=== PATIENT | female | born 1930 | race Caucasian/White ===

== ENCOUNTER 2017-02-17 10:05 | Emergency (ER) | payer OTHER, MEDICARE ==
[2017-02-17 10:16] VITALS: BP 144/79; PULSE 70; RESP 14; TEMP 98.4; O2SAT 93
--- NOTE | 2017-02-17 10:17 | UCPHY ---
H & P Time Seen by Provider: 02/17/17 10:16 Patient Type: Established HPI/ROS: Chief complaint: left michele laceration HPI: ED 6-year-old female in usual good health. She was attempting to get into a car and caught her left michele yesterday on the door itself. She sustained a ripping laceration present over the lateral aspect of the midportion of the left lower leg. She notes that she is not sure about her last tetanus shot Injury of the left leg, from door edge This happened at home , occurring yesterday Reports there is no numbness or loss of sensation. Contamination: None, except the as the door could be somewhat healthy FB possibility none Work: not applicable Avocation: not applicable ROS Neuro: No numbness or tingling or loss of sensation Smoking Status: Never smoked Physical Exam: Gen: Well-developed. Well-nourished. No odor of alcohol. Nontoxic. Afebrile. Extremity: There is a 9 cm, curved laceration that is split thickness to the left lower leg . Function: Without signs of tendon dysfnction NV Status: Intact CMS: Intact Constitutional: Initial Vital Signs Temperature (C) 36.9 C 02/17/17 10:15 Heart Rate 70 02/17/17 10:15 Respiratory Rate 14 02/17/17 10:15 Blood Pressure 144/79 H 02/17/17 10:15 O2 Sat (%) 93 02/17/17 10:15 O2 Delivery Mode Room Air Allergies/Adverse Reactions: amlodipine besylate [From Norvasc] Allergy (Verified 07/27/15 19:37) bupropion HCl [From Wellbutrin] Allergy (Verified 07/27/15 19:37) celecoxib [From Celebrex] Allergy (Verified 07/27/15 19:37) Home Medications: Medication Instructions Recorded Ambien 08/02/13 Lexapro 08/02/13 Losartan 08/02/13 Nifedipine 08/02/13 GABAPENTIN 06/06/14 Vicodin 5-300 mg Tablet 06/06/14 ZOLPIDEM TARTRATE 06/06/14 Medical Decision Making ED Course/Re-evaluation: This is a skin tear and will not require primary closure by stitches. The close nicely with Steri-Strips. However I am concerned as 24 hours old. I had the technical marketing engineer pulled back the flap, clean underneath, and we closed the wound with pressure as well as Steri-Strips. She tolerated procedure well. Differential Diagnosis: Diagnostic considerations include, but are not limited to, the following: Laceration, retained FB, fracture. - Data Points Medications Given: Discontinued Medications Tetanus/Diphtheria Toxoids Adsorbed (Tetanus-Diphtheria Tenivac) 0.5 ml IM .ONCE ONE Stop: 02/17/17 10:48 Last Admin: 02/17/17 10:58 Dose: 0.5 ml Tetracaine/Epinephrine/Lidocaine (Lets Soln Topical) 1 ea TP EDNOW ONE Stop: 02/17/17 10:49 Last Admin: 02/17/17 10:58 Dose: Not Given Departure - Departure Disposition: Home, Routine, Self-Care Clinical Impression: Skin tear Condition: Good Instructions: Skin Tear (ED) Additional Instructions: Keep area clean and dry Where bag your pants so they do not rub on the area Elevate her leg 3 times daily for an hour Remove Steri-Strips in 10 days time Watch for signs of infection Referrals: Naty Garcia MD [Primary Care Provider] - As per Instructions - PQRS PQRS Measurement: 134: Depression screening and followup, PRIME MD-PHQ2 (12 years and older) Over the last 2 weeks, how often have you been bothered by any of the following problems? 1. Feeling down, depressed, or hopeless? 2. Little interest or pleasure in doing things? Patient answered no to both 1 and 2 critically ill. 130: Documentation of medications. Reviewed all patient medications, doses, route and frequency. . 226: Do you smoke? No. 47: 65 and older: Advanced care planning. Patient designates surrogate decision maker as daphanie. 51: 18 years old and older with diagnosis of COPD, spirometry performance. Patient has no history of COPD 52: 18 years old and older with COPD and symptoms of COPD or FEV1<60% predicted prescribed a B Agonist. Patient has no history of COPD
[2017-02-17] MEDS ORDERED: TETANUS, DIPHTHERIA TOX (7YR+) 0.5 ML INJ IM ONE (10:47)
[2017-02-17] MEDS ORDERED: LETS SOLN TOPICAL 1 EA SYR TP ONE (10:48)
[2017-02-17] MEDS ORDERED: LIDOCAINE 2% JELLY 20 ML (UROJECT) ONE (10:53)
== END 2017-02-17 11:50 | disposition home or self-care (01) ==
LOC: CED 10:05
DX: S81.812A Laceration without foreign body, left lower leg, initial encounter (principal); W22.8XXA Striking against or struck by other objects, initial encounter
CPT/HCPCS: 90471; 90714; G0463; 99214-PO

== ENCOUNTER 2017-09-06 09:08 | Emergency (ER) | payer OTHER, MEDICARE ==
--- NOTE | 2017-09-06 09:23 | EDPHY ---
H & P Time Seen by Provider: 09/06/17 09:15 HPI/ROS: CHIEF COMPLAINT: Skin tear HISTORY OF PRESENT ILLNESS: The patient is a 86-year-old female who fell in her utility room. She states that she tripped over a box. She scraped her arm on the way down and hit her knee on the custom shoemaker. She has skin tears to her left lateral elbow and upper arm. She also has a deep laceration to her right michele. She denies any fractures. She has been ambulatory. She denies head neck or back pain. No weakness numbness or paralysis. REVIEW OF SYSTEMS: Constitutional: denies: chills, fever, recent illness, recent injury EENTM: denies: blurred vision, double vision, nose congestion Respiratory: denies: cough, shortness of breath Cardiac: denies: chest pain, irregular heart rate, lightheadedness, palpitations Gastrointestinal/Abdominal: denies: abdominal pain, diarrhea, nausea, vomiting, blood streaked stools Genitourinary: denies: dysuria, frequency, hematuria, pain Musculoskeletal: denies: joint pain, muscle pain Skin: See HPI Neurological: denies: headache, numbness, paresthesia, tingling, dizziness, weakness Hematologic/Lymphatic: denies: blood clots, easy bleeding, easy bruising Immunologic/allergic: denies: HIV/AIDS, transplant EXAM: GENERAL: Well-appearing, well-nourished and in no acute distress. HEAD: Atraumatic, normocephalic. EYES: Pupils equal round and reactive to light, extraocular movements intact, sclera anicteric, conjunctiva are normal. ENT: TMs normal, nares patent, oropharynx clear without exudates. Moist mucous membranes. NECK: Normal range of motion, supple without lymphadenopathy or JVD. LUNGS: Breath sounds clear to auscultation bilaterally and equal. No wheezes rales or rhonchi. HEART: Regular rate and rhythm without murmurs, rubs or gallops. ABDOMEN: Soft, nontender, normoactive bowel sounds. No guarding, no rebound. No masses appreciated. BACK: No CVA tenderness, no spinal tenderness, step-offs or deformities EXTREMITIES: See lacerations below, Normal range of motion, no pitting or edema. No clubbing or cyanosis. NEUROLOGICAL: Cranial nerves II through XII grossly intact. Normal speech, normal gait. 5/5 strength, normal movement in all extremities, normal sensation PSYCH: Normal mood, normal affect. SKIN: For skin tears to left lateral arm over elbow and upper arm. 4 cm v- shaped laceration to right michele approximately 2 cm deep. Neurovascular intact distally. Ambulatory. No visible fracture. No foreign body. 2 skin tears to left lower leg. Source: Patient Exam Limitations: No limitations - Personal History Current Tetanus/Diphtheria Vaccine: Yes Tetanus Vaccine Date: < 10 YEARS - Medical/Surgical History Hx Asthma: No Hx Chronic Respiratory Disease: No Hx Diabetes: No Hx Cardiac Disease: No Hx Renal Disease: No Hx Cirrhosis: No Hx Alcoholism: No Hx HIV/AIDS: No Hx Splenectomy or Spleen Trauma: No Other PMH: arthritis, HTN - Family History Significant Family History: No pertinent family hx - Social History Smoking Status: Never smoked Alcohol Use: Sober Drug Use: None Constitutional: Initial Vital Signs Temperature (C) 36.5 C 09/06/17 09:19 Heart Rate 70 09/06/17 09:19 Respiratory Rate 16 09/06/17 09:19 Blood Pressure 139/68 H 09/06/17 09:19 O2 Sat (%) 94 09/06/17 09:19 O2 Delivery Mode Room Air Allergies/Adverse Reactions: amlodipine besylate [From Norvasc] Allergy (Verified 07/27/15 19:37) bupropion HCl [From Wellbutrin] Allergy (Verified 07/27/15 19:37) celecoxib [From Celebrex] Allergy (Verified 07/27/15 19:37) Home Medications: Medication Instructions Recorded Ambien 08/02/13 Lexapro 08/02/13 Losartan 08/02/13 Nifedipine 08/02/13 GABAPENTIN 06/06/14 Vicodin 5-300 mg Tablet 06/06/14 ZOLPIDEM TARTRATE 06/06/14 Medical Decision Making Procedures: Procedure: Laceration repair. Verbal consent was obtained from the patient. The 4 cm right lower leg laceration was anesthetized with 0.5% bupivacaine locally infiltrated. The wound was irrigated copiously according to protocol, draped and explored to its base. It was approximately 2 cm deep. There were no deep structures involved. No tendon, nerve, or vascular injury was identified when explored through full range of motion. No foreign body was identified. The wound was repaired with 2 deep sutures 2.0 Vicryl, 6 horizontal mattress sutures, 5.0 Prolene, interrupted. The wound repair was complex with flap realignment and multilayered closure. The procedure was performed by myself. A dressing was then placed with sterile gauze and bacitracin. Is was also reinforced Steri- Strips ED Course/Re-evaluation: The patient tolerated laceration repair. The rest of her skin tears were closed with Steri-Strips after cleaning. Patient tolerated this well. She declines x-rays. She is eager to go home. Differential Diagnosis: Partial list of the Differential diagnosis considered include but were not limited to; laceration, skin tear and although unlikely based on the history and physical exam, I also considered fracture, head injury, neck injury. I discussed these differential diagnoses and the plan with the patient as well as the usual and expected course. The patient understands that the diagnosis is provisional and that in medicine we are not always correct and that further workup is often warranted. Usual and customary warnings were given. All of the patient's questions were answered. The patient was instructed to return to the emergency department should the symptoms at all worsen or return, otherwise to followup with the physician as we discussed. Departure - Departure Disposition: Home, Routine, Self-Care Clinical Impression: Laceration, Skin tear Condition: Fair Instructions: Care For Your Stitches (ED), Laceration (ED), Skin Tear (ED) Additional Instructions: PLEASE RETURN IN 10 DAYS TO HAVE YOUR SUTURES REMOVED. CLEAN YOUR WOUNDS DAILY WITH WARM, SOAPY WATER BEING CAREFUL NOT TO DISTURB THE STERI STRIPS. REAPPLY A BANDAGE TO YOUR WOUNDS AFTER CLEANING. THE NON-STICK MESH WE GAVE YOU TODAY CAN BE RE-APPLIED FOR THE NEXT 5-7 DAYS NEEDED. THEN THEY SHOULD BE THROWN OUT. THE STERI STRIPS WILL FALL OFF ON THEIR OWN IN 7-10 DAYS. DO NOT REMOVE THEM BEFORE THEN, THIS CAN CAUSE THE WOUNDS TO REOPEN. FOLLOWUP FOR ANY WORSENING OR CONCERNS, INCLUDING BUT NOT LIMITED TO: INCREASED PAIN, REDNESS, SWELLING, PURULENT DISCHARGE, FEVERS, OR STREAKING ON YOUR ARM. Referrals: Naty Garcia MD [Primary Care Provider] - As per Instructions
[2017-09-06 09:26] VITALS: BP 139/68; PULSE 70; RESP 16; TEMP 97.7; O2SAT 94
== END 2017-09-06 10:59 | disposition home or self-care (01) ==
LOC: CED 09:08
PROC: 0HQLXZZ Repair Left Lower Leg Skin, External Approach (ICD-10-PCS; principal; 2017-09-06)
DX: S81.812A Laceration without foreign body, left lower leg, initial encounter (principal); I10 Essential (primary) hypertension; W01.198A Fall on same level from slipping, tripping and stumbling with subsequent striking against other object, initial encounter

== ENCOUNTER → 2017-11-25 | Outpatient (CLI) | payer OTHER, MEDICARE | LOC: BHFA 08:30 | PROVIDERS: ATTEND Internal Medicine Interventional Cardiology | DX: R07.9 Chest pain, unspecified (principal); R94.31 Abnormal electrocardiogram [ECG] [EKG]; I25.10 Atherosclerotic heart disease of native coronary artery without angina pectoris; I10 Essential (primary) hypertension | CPT/HCPCS: 78452; 93017; A9500; J2785 ==

== ENCOUNTER → 2018-03-17 | Outpatient (CLI) | payer OTHER, MEDICARE | LOC: CIMAGING 09:06 | PROVIDERS: ATTEND Internal Medicine | DX: R10.9 Unspecified abdominal pain (principal); R14.0 Abdominal distension (gaseous); R53.83 Other fatigue; Z79.899 Other long term (current) drug therapy; R93.3 Abnormal findings on diagnostic imaging of other parts of digestive tract | CPT/HCPCS: 74022-PO ==

== ENCOUNTER → 2018-03-23 | Outpatient (CLI) | payer OTHER, MEDICARE ==
[~2018-03-23] MED LIST: IOPAMIDOL (ISOVUE 370) 100 ML BTL IV ONE
== END ==
LOC: FIMAGING 08:24
PROVIDERS: ATTEND Internal Medicine
DX: K59.00 Constipation, unspecified (principal); K57.30 Diverticulosis of large intestine without perforation or abscess without bleeding; I10 Essential (primary) hypertension; I25.10 Atherosclerotic heart disease of native coronary artery without angina pectoris
CPT/HCPCS: 74175; Q9967

== ENCOUNTER 2018-03-27 09:54 | Emergency (ER) | payer OTHER, MEDICARE ==
--- NOTE | 2018-03-27 10:09 | EDPHY ---
H & P Time Seen by Provider: 03/27/18 10:00 HPI/ROS: 87-year-old female presents complaining of left forearm laceration after bumping into a door knob early this morning. She denies difficulty moving her arm, she denies pain. She also states that she had a fall several days ago and her right leg feels tight. No difficulty walking or bending her knee. No leg swelling, no chest pain, no sob Review of systems As per HPI General no fever no chills no weakness HEENT no eye pain no eye discharge. No eye redness, no sore throat Respiratory no cough, no shortness of breath Cardiac no chest pain, no peripheral edema GI no abdominal pain, no diarrhea, no constipation, no nausea, no vomiting no flank pain, no hematuria, no dysuria Musculoskeletal no myalgias, no joint pain Heme pos easy bruising, no easy bleeding Endo no polyuria, no polydipsia Skin no rashes, no pruritus Neuro no syncope, no dizziness, no headaches Psych is no suicidal ideation, no homicidal ideation Past Medical/Surgical History: hypertension Social History: no alcohol or drug use Smoking Status: Never smoked Physical Exam: thin elderly F in nad, non toxic appearance afebrile vss at,nc neck supple, no jvd lungs cta bilat heart rrr abd non dist nab soft nt pelvis non tender right lower ext- no calf swelling,no calf tenderness, from at knee, no erythema , no increased warmth distal pulses intact Left forearm with superficial skin avulsion lateral left forearm approximately 6 x 3 cm, no swelling, no lymphangitic streaks, full range of motion at elbow, good distal pulses Constitutional: Initial Vital Signs Temperature (C) 36.9 C 03/27/18 10:02 Heart Rate 75 03/27/18 10:02 Respiratory Rate 20 03/27/18 10:02 Blood Pressure 132/61 H 03/27/18 10:02 O2 Sat (%) 92 03/27/18 10:02 O2 Delivery Mode Room Air Allergies/Adverse Reactions: amlodipine besylate [From Norvasc] Allergy (Verified 03/27/18 10:08) bupropion HCl [From Wellbutrin] Allergy (Verified 03/27/18 10:08) celecoxib [From Celebrex] Allergy (Verified 03/27/18 10:08) Sulfa (Sulfonamide Antibiotics) Allergy (Verified 03/27/18 10:08) Home Medications: Medication Instructions Recorded Ambien 08/02/13 Lexapro 08/02/13 Losartan 08/02/13 Nifedipine 08/02/13 GABAPENTIN 06/06/14 Vicodin 5-300 mg Tablet 06/06/14 Pravastatin Sodium 03/27/18 Medical Decision Making ED Course/Re-evaluation: Patient seen and evaluated for left forearm injury, and right leg"tightness". Impression Left forearm skin avulsion Right leg strain Plan Skin avulsion debrided, cleansed, wound care provided Patient advised to change bandage daily and to recheck with her primary care physician in 2-3 days Right leg-recommend ice to area tenderness and gentle stretches. Differential Diagnosis: Differential diagnosis considered but not limited to Left forearm abrasion, laceration, skin avulsion, left elbow fracture Right leg contusion, abrasion, sprain, strain, DVT Departure - Departure Disposition: Home, Routine, Self-Care Clinical Impression: Avulsion of skin of left forearm, Strain of knee and leg, right Condition: Good Instructions: Muscle Strain (ED), Skin Avulsion (ED) Additional Instructions: Keep area clean and dry. Change bandage once a day. Follow up with your primary care physician this week to recheck and make sure it is not infected and is healing well. Referrals: NONE *PRIMARY CARE P,. [Primary Care Provider] - As per Instructions
[2018-03-27 11:24] VITALS: BP 130/63
== END 2018-03-27 11:01 | disposition home or self-care (01) ==
LOC: CED 09:54
DX: S51.802A Unspecified open wound of left forearm, initial encounter (principal); S86.911A Strain of unspecified muscle(s) and tendon(s) at lower leg level, right leg, initial encounter; I10 Essential (primary) hypertension; W18.09XA Striking against other object with subsequent fall, initial encounter

== ENCOUNTER → 2018-07-20 | Outpatient (CLI) | payer OTHER, MEDICARE | LOC: FIMAGING 10:26 | PROVIDERS: ATTEND Internal Medicine | DX: G31.9 Degenerative disease of nervous system, unspecified (principal); I67.2 Cerebral atherosclerosis; J32.0 Chronic maxillary sinusitis ==

== ENCOUNTER → 2018-09-07 | Outpatient (CLI) | payer OTHER, MEDICARE | LOC: BHFA 09:00 | PROVIDERS: ATTEND Internal Medicine Cardiovascular Disease | DX: I25.10 Atherosclerotic heart disease of native coronary artery without angina pectoris (principal); I10 Essential (primary) hypertension; E78.2 Mixed hyperlipidemia ==

== ENCOUNTER → 2018-09-20 | Outpatient (CLI) | payer OTHER, MEDICARE | LOC: FIMAGING 14:50 | PROVIDERS: ATTEND Physician Assistant | DX: I82.4Z2 Acute embolism and thrombosis of unspecified deep veins of left distal lower extremity (principal) ==

== ENCOUNTER → 2018-09-27 | Outpatient (CLI) | payer OTHER, MEDICARE | LOC: BHLMT 10:45 | PROVIDERS: ATTEND Internal Medicine Cardiovascular Disease | DX: I25.10 Atherosclerotic heart disease of native coronary artery without angina pectoris (principal); I67.82 Cerebral ischemia ==

== ENCOUNTER 2018-10-02 18:48 | Inpatient (IN) | payer OTHER, MEDICARE ==
--- NOTE | 2018-10-02 19:37 | EDPHY ---
H & P Smoking Status: Never smoked Time Seen by Provider: 10/02/18 19:19 HPI/ROS: CHIEF COMPLAINT: Right arm and leg weakness and sensory changes HISTORY OF PRESENT ILLNESS: Patient is a 87-year-old female here complaining of approximately 4 months of intermittent sensation of warmth in the the right arm and right leg. She says this is non positional and comes and goes has become more frequent over the last couple of weeks. She did have negative dry head CT scan done her primary care physician back in June. Over the last couple weeks she has also noticed that the warm sensation is also has been associated with sensation of weakness. She denies any trouble speaking or facial droop or recent head injury. She is not taking any blood thinners. She she has no history of stroke. This evening when she was speaking with her daughter on the phone she had a very strong sensation of the warmth in her right arm and right leg and associated weakness. Decision was strong enough to were made speaking difficult. She denies actual difficulty speaking more that she was overwhelmed with the sensation in her extremities. REVIEW OF SYSTEMS: Constitutional: No fever, no chills. Eyes: No discharge. ENT: No sore throat. Cardiovascular: No chest pain, no palpitations. Respiratory: No cough, no shortness of breath. Gastrointestinal: No abdominal pain, no vomiting. Genitourinary: No hematuria. Musculoskeletal: No back pain. Skin: No rashes. Neurological: No headache. (Arnoldo Samuels) Physical Exam: General Appearance: Alert and no distress. ENT: normal dentition. No tonsillar exudate or swelling. Eyes: Pupils equal and round no injection. Respiratory: Chest is nontender, lungs are clear to auscultation. Cardiac: regular rate and rhythm. No lower extremity edema Gastrointestinal: Abdomen is soft and nontender, no masses, bowel sounds normal. Musculoskeletal: Neck is supple and nontender. Extremities have full range of motion and are nontender without deformity Skin: No rashes or lesions. Neuro: Cranial nerves grossly intact. No nystagmus. Normal [id number] testing. No ulnar drift. Equal grasp bilateral hands. Ambulatory. (Arnoldo Samuels) Constitutional: Initial Vital Signs Temperature (C) 36.8 C 10/02/18 18:51 Heart Rate 72 10/02/18 18:51 Respiratory Rate 18 10/02/18 18:51 Blood Pressure 160/75 H 10/02/18 18:51 O2 Sat (%) 92 10/02/18 18:51 O2 Delivery Mode Nasal Cannula O2 (L/minute) 2 Allergies/Adverse Reactions: bupropion HCl [From Wellbutrin] Allergy (Unknown, Unverified 10/03/18 11:06) amlodipine besylate [From Norvasc] Allergy (Verified 03/27/18 10:08) aspirin Allergy (Verified 10/03/18 03:41) celecoxib [From Celebrex] Allergy (Verified 03/27/18 10:08) NSAIDS (Non-Steroidal Anti-Inflamma Allergy (Verified 10/03/18 03:42) Sulfa (Sulfonamide Antibiotics) Allergy (Verified 03/27/18 10:08) Home Medications: Medication Instructions Recorded Escitalopram Oxalate [Lexapro] 15 mg PO DAILY 08/02/13 Losartan Potassium 100 mg PO DAILY 08/02/13 NIFEdipine ER [Adalat CC 30 mg (*)] 30 mg PO DAILY 08/02/13 Zolpidem Tartrate [Ambien 5MG (*)] 5 mg PO BID@03,21 08/02/13 Gabapentin [Neurontin 400 MG (*)] 400 mg PO QID 06/06/14 Hydrocodone/Acetaminophen [[place]ossom 1 - 2 tab PO Q4-6PRN PRN 06/06/14 5/325 (*)] Pravastatin Sodium 20 mg PO DAILY 03/27/18 Albuterol [Proventil 2 mg (*)] 2 mg PO TID 10/03/18 Mirtazapine [Remeron] 15 mg PO HS 10/03/18 traZODone [traZODONE 50MG (*)] 50 - 100 mg PO HS PRN 10/03/18 Medical Decision Making ED Course/Re-evaluation: 87-year-old female the here with intermittent sensory changes in the right upper extremity and right lower extremity and also weakness. MR brain without contrast reveals the the left-sided mass/tumor verses subacute infarct. 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 She will be admitted for further evaluation including MRI with contrast. Patient has no focal deficits on exam and I have re-evaluated her at least 5 times and she has never developed any neurologic deficits on her exam. Patient agrees with admission and plan. (Arnoldo Samuels) Differential Diagnosis: Seizure, CVA, ACS, arrhythmia, brain bleed, brain mass (Arnoldo Samuels) - Data Points Laboratory Results: Laboratory Results 10/03/18 09:11 10/03/18 04:47 Medications Given: Hydrocodone Bitart/Acetaminophen ([place] 5/325) 1 - 2 tab PO Q4H PRN PRN Reason: Pain, Breakthrough Stop: 10/13/18 10:59 Last Admin: 10/03/18 16:12 Dose: 1 tab Albuterol (Proventil Tablet) 2 mg PO TID JOSE Stop: 04/01/19 15:59 Last Admin: 10/04/18 02:55 Dose: Not Given Alprazolam (Xanax) 0.125 mg PO BID PRN PRN Reason: Anxiety Stop: 04/01/19 20:59 Last Admin: 10/03/18 15:00 Dose: 0.125 mg Escitalopram Oxalate (Lexapro) 15 mg PO DAILY JOSE Stop: 04/01/19 10:59 Last Admin: 10/03/18 11:28 Dose: 15 mg Gabapentin (Neurontin) 600 mg PO TID JOSE Stop: 04/01/19 11:43 Last Admin: 10/03/18 22:11 Dose: 600 mg Sodium Chloride (Ns) 1,000 mls @ 75 mls/hr IV CONT JOSE Stop: 03/31/19 23:44 Last Admin: 10/03/18 02:31 Dose: 1,000 mls Losartan Potassium (Cozaar) 100 mg PO DAILY JOSE Stop: 04/01/19 11:44 Last Admin: 10/03/18 12:06 Dose: 100 mg Mirtazapine (Remeron) 15 mg PO HS JOSE Stop: 04/01/19 20:59 Last Admin: 10/03/18 22:11 Dose: 15 mg Nifedipine (Adalat Cc) 30 mg PO DAILY JOSE Stop: 04/01/19 10:59 Last Admin: 10/03/18 11:24 Dose: 30 mg Zolpidem Tartrate (Ambien) 5 mg PO HS PRN PRN Reason: Sleep/Insomnia Stop: 04/01/19 01:25 Last Admin: 10/03/18 22:11 Dose: 5 mg Discontinued Medications Gabapentin (Neurontin) 400 mg PO TID JOSE Stop: 04/01/19 11:43 Last Admin: 10/03/18 16:12 Dose: 400 mg Point of Care Test Results: Chemistry 10/02/18 19:40 POC Troponin I 0.01 ng/mL ng/mL (0.00-0.08) Departure - Departure Disposition: [facility] Clinical Impression: Brain mass Condition: Good
--- NOTE | 2018-10-02 19:52 | CPEKG ---
Test Reason : OPEN Blood Pressure : / mmHG Vent. Rate : 063 BPM Atrial Rate : 063 BPM P-R Int : 170 ms QRS Dur : 107 ms QT Int : 423 ms P-R-T Axes : 038 019 113 degrees QTc Int : 434 ms Sinus rhythm Left ventricular hypertrophy Inferior infarct, old Lateral leads are also involved Confirmed by Manny Verduzco ([id number] on 10/02/2018 7:51:59 PM Referred By: Confirmed By:Manny Verduzco
[2018-10-02 21:03] LABS: PLATELET COUNT 187 10^3/uL (150-400)
[2018-10-02] MEDS ORDERED: NS 1,000 ML IV SCH (23:45)
[2018-10-02] MEDS ORDERED: ONDANSETRON DISINTEGRATING 4 MG TAB PO PRN (23:56)
[2018-10-02] MEDS ORDERED: ACETAMINOPHEN 325 MG TAB PO PRN (23:56)
[2018-10-02] MEDS ORDERED: ONDANSETRON 4 MG/2 ML VIAL IVP PRN (23:56)
[2018-10-03] MEDS: ZOLPIDEM TARTRATE 5 MG TAB PO PRN ×2 (01:45→22:11)
[2018-10-03] MEDS ORDERED: hydrALAZINE 10 MG TAB PO PRN (02:16)
--- NOTE | 2018-10-03 04:05 | GHP ---
DATE OF ADMISSION: 10/02/2018 SOURCE: Patient provides history, appears reliable. EMR was reviewed and case discussed with ED pro vider. CHIEF COMPLAINT: Right arm and leg warmth and weakness. HISTORY OF PRESENT ILLNESS: A very pleasant 87-year-old female, who has a history of HTN, HLD, OA, a nxiety, and chronic pain, who presents to the emergency department today with complaints of increasin g frequency of right arm and leg pain, warmth. Patient has been experiencing intermittent episodes 1 or more times weekly since June. In the past week, however, patient has noted that her symptoms h ave been increasing in frequency. She feels like it is an increase in warmth. She denies any numbne ss, tingling. She did not have any focal weakness until today. She also became so overwhelmed with the severity of her symptoms that she felt like she was having a hard time getting her words out. Sh e denies any difficulties with the words, but she just felt so overwhelmed, she had trouble talking. The patient denies any dizziness or vertigo, but she felt like the best thing for her to do would be to stand still, and she was comfortable waiting for her symptoms to resolve. She denies any headach e. No blurry vision. No numbness or tingling. Patient denies any causative sources for her symptom s. They can occur at any time. She denies any associated headache. No blurry or visual changes. N o nausea, vomiting. Patient reports she has chronic shortness of breath at baseline, followed by Dr. Sal Ballesteros but has not had any acute changes in any of her symptoms. SYSTEMS REVIEW: 10 systems reviewed. Negative, except as noted above in HPI. ALLERGIES: Amlodipine, bupropion, all NSAIDs, sulfa. HOME MEDICATIONS: As available per EMR, still missing dosing. Vicodin 5/300 p.r.n., pravastatin, ni fedipine, losartan, Lexapro, gabapentin, and Ambien. PAST MEDICAL HISTORY: Significant for HTN, HLD, OA, anxiety, pain. PAST SURGICAL HISTORY: Patient with a left knee arthroscopy. She had a laminectomy in the lumbar sp ine, L4-5 at age 34. She had a bilateral cataract extraction and lens replacement. She also has had a right retinal clot thrombosed. She has had appendectomy. FAMILY HISTORY: Patient's mother age 83 [address] No cancers in the family. Patient has 1 br other who had a brain tumor that was benign but impacted his frontal lobe. She has 8 brothers and 3 sisters. Multiple are . Multiple brothers with history of CAD and CT. Youngest age 59, dec eased. Sister: HTN. No family history of CVA. SOCIAL HISTORY: Patient lives alone. She does not smoke, drink, or do drugs. She has a daughter wh o lives locally in town. CODE STATUS: Full. PHYSICAL EXAM: VITAL SIGNS UPON ARRIVAL TO THE EMERGENCY DEPARTMENT: Blood pressure 160/75, heart r ate 72, respiratory rate 18, O2 sat 92% on room air with temperature 36.8. VITALS CURRENTLY AVAILABL E: Blood pressure 186/64, heart rate 64, respiratory rate 19, O2 sat is 94% on room air with tempera ture 36.6. GENERAL: No acute distress. Very pleasant, elderly lady who is resting quietly in bed. She does appear slightly younger than stated age. HEAD: Normocephalic, atraumatic. EYES: Extraoc ular muscles are intact. Pupils equal, round, reactive to light bilaterally and symmetric. Lens ref charmaine is appreciated bilaterally. ENT: Mucous membranes are moist. Dentition in fair condition. NEC K: Supple. Trachea midline. CV: Regular rate and rhythm. No murmurs, rubs, or gallops appreciate d. RESPIRATORY: Lungs are clear to auscultation bilaterally. No wheezes, rales, or rhonchi appreci ated. ABDOMEN: Positive bowel sounds. Soft, nontender to palpation. No rebound, guarding, or mass es. : No suprapubic tenderness to palpation. No Luevano catheter in place. MUSCULOSKELETAL: Meseret ent with generalized deconditioning, but she otherwise is able to sit up independently. She moves al l extremities. Musculoskeletal exam grossly normal. NEURO: Grossly nonfocal. Patient moves all ex tremities. She has 5/5 upper and lower extremity strength. Route Sales Associate are equal and intact and within no rmal limits. Patient is able to move all extremities without any evidence of deficit. No facial lizet oping. Cranial nerves 2 through 12 are intact and symmetric bilaterally. PSYCH: The patient is a l ittle bit anxious, but she is otherwise pleasant and cooperative. Thought process, content, and ques tions are all appropriate. LABORATORY STUDIES: 1. WBC is 9.29, H and H 12.8 and 39.3, MCV of 92.3, platelet count is 187, no bands. 2. Sodium is 139, potassium 4.2, chloride 107, CO2 24, anion gap of 8, BUN 18, creatinine 0.7, GFR g reater than 60, glucose 87, calcium 10.1. Troponin is negative, 1.01. EKG: Normal sinus rhythm in the 60s. LVH. Patient with Q-waves in the inferior leads, lateral lead s, with some nonspecific T-wave flattening in the anterolateral leads. No acute changes. QTc is 434 . IMAGING: MRI without image report reviewed. Diffuse thickening in the left insular cortex with foca l masslike diffusion restriction posteriorly. 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 Postcontrast imaging recommended for further characterization. Underlying white matter micr ovascular ischemic gliosis is noted. ASSESSMENT AND PLAN: This is a very pleasant 87-year-old female who presents to the emergency [facility] system with complaints of [id number] right arm warmth and rapidly resolving right-sided weakness in upper and lower extremity. 1. Right-sided weakness, currently resolved. Patient with intermittent warmth of these extremities. MRI is concerning for a primary brain lesion. [facility]. Neurosurgery consult in the morning as per day team. Currently, patient i s stable. Monitor neurologic checks with vital sign checks. Left insular cortex mass as noted above . CHRONIC MEDICAL ISSUES: 1. Benign essential hypertension. Patient has had rising blood pressures. She does appear a little bit anxious. Will try to have her rest for some time and then recheck her blood pressure. She is o therwise asymptomatic from this. Hydralazine will be available p.r.n. Patient's med list is incompl ete as patient does not recall the dosing. Will hold off on restarting home medicines until these ar e clarified. Patient does report that she took her home medications prior to leaving for the [facility]. 2. Hyperlipidemia. Continue statin. 3. Osteoarthritis. Supportive care. 4. Anxiety. Ativan will be made available p.r.n. Patient is complaining of insomnia currently, and so will resume her home Ambien at low dose. 5. Fluid, electrolyte, nutrition: Some IV fluids overnight for gentle hydration. Electrolyte monit oring. Replace if needed. 6. COR status is full. DISPOSITION: Patient admitted to observation status at this time pending repeat MRI and Neurosurgery evaluation. /[id number]/MODL
--- NOTE | 2018-10-03 08:44 | NEUSURGPN ---
Assessment/Plan: Assessment: 87 yr old F with 4 month history of right sided "warmth", mass seen on brain MRI. Neuro intact Please see full dictated consult when available Plan: -MRI with contrast ordered -May consider CAP CT following MRI with -Dr Izaguirre will see patient this morning -Please call neurosurgery with questions/concerns Subjective: Laying in bed, denies any complaints Objective: AxO x3 PERRLA, EOMI CN 2-12 grossly intact MAEx4 5/5 BUE,BLE sensation intact to light touch BLE Mild pronator drift Neuro Check Frequency: per routine Urinary Catheter in Place: No - Physician Discussed Patient with : Dmitriy Neurosurgery Physical Exam - Vitals, I&O, Labs I and O 10/02/18 10/03/18 10/04/18 05:59 05:59 05:59 Intake Total 300 Balance 300 Weight 55.33 kg 55.3 kg Intake: IV Infused (ml) 300 Ns 1,000 ml @ 75 mls/hr 300 IV CONT JOSE Rx#: [id number] Vital Signs Temp Pulse Resp BP Pulse Ox 36.5 C 50 L 16 178/78 H 98 10/03/18 04:45 10/03/18 04:45 10/03/18 04:45 10/03/18 07:30 10/03/18 04:45 Laboratory Results 10/03/18 04:47 10/03/18 04:47 ICD10 Worksheet Patient Problems: Problems Problem Status Onset Brain mass Acute - ICD10 Problem Qualifiers (1) Brain mass
[2018-10-03] MEDS ORDERED: GADOBUTROL 10 ML VIAL IVP ONE (09:37)
[2018-10-03] MEDS ORDERED: traZODone 50 MG TAB PO PRN (11:00)
[2018-10-03] MEDS: NIFEdipine ER 30 MG TAB PO SCH (11:24)
[2018-10-03] MEDS: ESCITALOPRAM OXALATE 10 MG TAB PO SCH (11:28)
[2018-10-03] MEDS: HYDROCODONE/APAP 5/325 TAB PO PRN ×2 (11:28→16:12)
[2018-10-03] MEDS ORDERED: GABAPENTIN 400 MG CAP PO SCH ×2 (11:44→16:00)
--- NOTE | 2018-10-03 11:51 | HOSPPROG ---
Hospitalist Progress Note Assessment/Plan: Janina Senior is a 87 y/o who presented to the ER with right sided weakness in both upper and lower extremities that resolved. Today is my first encounter, chart reviewed. Appreciate neurosurgery seeing. *right sided weakness w resolution -MRI without contrast shows diffuse thickening in the left insular cortex with focal masslike diffusion restriction posteriorly. 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 -repeat MRI w contrast shows subacute vs low grade glioma -appreciate Dr Izaguirre seeing her, asked Dr Knight to see -patient's daughter said his symptoms have been progressing for several weeks, also have some memory issues, difficulty w finding words at times *htn -resumed losartan *HLD -statin -check lipid panel *osteoarthritis -resumed home pain med *anxiety -she says this is from the loss of her son -ordered very low dose of Xanax *Plan: Dr Knight to see, further input from Neurosurgery. The patient will require another midnight stay for evaluation and further discussion of treatment options. Subjective: Ivette has no complaints. Is anxious about her diagnosis. Objective: Vital Signs Temp Pulse Resp BP Pulse Ox 36.5 C 71 25 H 172/80 H 93 10/03/18 04:45 10/03/18 08:00 10/03/18 08:00 10/03/18 11:24 10/03/18 08:00 Laboratory Results 10/03/18 09:11 10/03/18 04:47 10/02/18 10/03/18 10/04/18 05:59 05:59 05:59 Intake Total 300 Balance 300 - Physical Exam Constitutional: no apparent distress, appears nourished, uncomfortable Eyes: EOMI Ears, Nose, Mouth, Throat: hearing normal Cardiovascular: regular rate and rhythym Respiratory: no respiratory distress Gastrointestinal: normoactive bowel sounds Skin: warm Neurologic: AAOx3, CN II-XII Intact, No facial droop Psychiatric: interacting appropriately ICD10 Worksheet Patient Problems: Problems Problem Status Onset Brain mass Acute
[2018-10-03] MEDS: LOSARTAN POTASSIUM 50 MG TAB PO SCH (12:06)
[2018-10-03] MEDS: ALPRAZolam 0.25 MG TAB PO PRN (15:00)
--- NOTE | 2018-10-03 15:54 | GCON ---
CHIEF COMPLAINT: Right-sided body dysesthesias, brain mass. HISTORY OF PRESENT ILLNESS: The patient is an 87-year-old female who began noticing right sided body dysesthesias, which she describes as warmth coming over her body on the right side. These symptoms have been going on for approximately 4 months and tend to only last a few seconds at a time. More recently in the last month, these dysesthesias have become more frequent and more severe in intensity and lasting for longer periods of time. She denies any weakness in any of her extremities during these episodes. She presented to the emergency department, underwent a MRI of the brain, which shows a left- sided cranial mass. She denies any dizziness or vertigo. Denies any vision issues or difficulties with her words. REVIEW OF SYSTEMS: A 10-point review of systems was performed and negative aside from what was mentioned in HPI. ALLERGIES: Amlodipine, bupropion , NSAIDs, sulfa, and adhesive. HOME MEDICATIONS: 1. Ambien. 2. Lexapro. 3. Losartan. 4. Nifedipine. 5. Gabapentin. 6. Vicodin 5/300. 7. Pravastatin sodium. PAST MEDICAL HISTORY: 1. Hypertension. 2. Hyperlipidemia. 3. Osteoarthritis. 4. Obstructive apnea. 5. Anxiety. 6. Pain. PAST SURGICAL HISTORY: 1. Left knee arthroscopy. 2. Laminectomy L4-5 at age 34. 3. Bilateral cataracts and lens replacement. 4. Right retinal clot thrombosis. 5. Appendectomy. FAMILY HISTORY: Patient's mother at the age of 83 of an [place]. Denies any cancers in her family. The patient has 1 brother who had a brain tumor that was benign, but impacted his frontal lobe. SOCIAL HISTORY: Patient denies any alcohol use. She has never smoked any nicotine products, and she denies any illicit drug use. She lives alone and she has 1 daughter who lives close by. DIAGNOSTICS: White blood cell count 5.74, hemoglobin 13.7, hematocrit 41.2, platelets 187. Sodium 138, potassium 4.3, BUN 13, creatinine 0.7, glucose is 76. DIAGNOSTIC IMAGING: MRI of the brain performed without contrast on October 02, 2018, at 1952 demonstrates: 1. Diffuse thickening of the left insular cortex with focal mass-like diffusion restriction posteriorly, primary brain tumor, glioma versus subacute ischemic infarction. 2. Underlying white-matter microvascular ischemic gliosis. PHYSICAL EXAMINATION: VITAL SIGNS: Blood pressure 144/93, heart rate 98, respiratory rate 16, oxygen saturation is 92% on room air, temperature is 37.9 degrees Celsius. HEENT: Head is normocephalic and atraumatic. Pupils equal, round, and reactive to light. EOMI. Full visual pittman by confrontation. RESPIRATORY/ CARDIAC: Deferred. ABDOMEN: Deferred. GENITOURINARY: Deferred. RECTAL: Deferred. NEUROLOGIC: The patient is awake and alert, oriented to name, place , location, date, time, and situation. Memory is intact to immediate past and current events. Speech: No aphasia or dysphonia. Cranial nerves 2-12 are grossly intact. Motor: Patient has 5/5 strength in all muscle groups in bilateral upper and lower extremities to include deltoids, biceps, triceps, brachioradialis, wrist flexion, extensors, child care worker, intrinsic fingers, iliopsoas, quadriceps, hamstrings, plantar flexion, dorsiflexion, EHL testing. Sensation is grossly intact to light touch throughout all dermatomal distributions of bilateral lower extremities. Reflexes biceps, triceps, brachioradialis, knee jerk, and ankle jerk are 2+/4. Toes are downgoing bilaterally. Aguirre sign is negative. Babinski is negative. No evidence of clonus. Patient does have a mild positive pronator drift. ASSESSMENT/PLAN: Patient is an 87-year-old female who presented to the emergency department with progressive right side dysesthesias, which have progressively been getting worse in the last 4 months. Patient underwent an MRI of the brain without contrast last evening, which demonstrated diffuse thickening of the left insular cortex with a focal mass-like diffusion. We will order an MRI with contrast this morning for further evaluation of this mass. We will present the patient at our Hospital-based tumor board tomorrow morning. We will consider doing a biopsy of the cerebral mass sometime later this week. Currently, the patient is neurologically intact. Denies any neurologic symptoms. Patient was seen and examined by myself and Dr. Izaguirre at the bedside on October 03, 2018, at 0825. Please call Neurosurgery with any questions or concerns. /[id number]/MODL MTDD
--- NOTE | 2018-10-03 16:08 | ASMTCMCOM ---
CM Note CM Note Notes: Pt has been admitted with right sided weakness and a brain mass. Neurosurgery is consulting. Pt is a and lives in [place]. She has two daughters. CM will follow for any d/c needs. D/C plan: TBD Date Signed: 10/03/2018 04:07 PM Electronically Signed By:LUANNE Arango
[2018-10-03] MEDS: ALBUTEROL 2 MG TAB PO SCH (16:12)
--- NOTE | 2018-10-03 17:38 | PDMN ---
Medical Necessity Medical necessity: [facility] yo w/ R sided weakness and feeling of intermittent warmth. MRI reviewed and concerning for primary brain lesion. Neurosurgery consult. Determines s/sx are from the mass. Glioma vs. subacute ischemic infact. More extensive MRI needed, will review at tumor board, consider bx of cerebral mass. Hx HTN, HLD, OA, anxiety and pain. Change to IP status 09/02/18 @1448 per MD order re further input from neurosurgery and require another MN stay for eval and further discussion of treatment options.
--- NOTE | 2018-10-03 18:10 | GCON ---
NEUROLOGY CONSULT CHIEF COMPLAINT: Abnormal MRI. HISTORY OF PRESENT ILLNESS: The patient is a very pleasant 87-year-old lady who had some cardiovascular risk factors including hypertension and dyslipidemia treated by Dr. Bob Menendez as an outpatient. She recently had a carotid ultrasound, which was negative. She came to the ED because of very slowly progressive, focal neurologic symptoms starting 4 months ago. She first felt paresthesias in the right arm, right leg, and that has progressed very slowly over the last 4 months to more persistent and prominent motor sensory symptoms with a feeling of weakness and numbness in the right arm and right leg. She was admitted after a probable mass versus subacute infarct was found in the left insular region. I reviewed MRI images at length, which showed diffuse thickening of the left insular cortex and masslike diffusion restriction. There was also a postcontrast MRI completed which showed that this area of abnormality does have some abnormal enhancement which is patchy in the area of the insular cortex. PAST MEDICAL HISTORY, SOCIAL HISTORY, FAMILY HISTORY, HOME MEDICATIONS, ALLERGIES: See Dr. Patel's H and P. PHYSICAL EXAM: VITAL SIGNS: Blood pressure is 140s over 90s, temperature 36.7 , heart rate 70s to 80s, O2 sat 95%. NEUROLOGIC: The patient is awake, alert, very pleasant. Higher mental function, no aphasia. Motor: There is some mild weakness on the right. No convulsive activity or myoclonus in my presence. IMPRESSION/PLAN: 1. Abnormal brain MRI. Overall, the patient's clinical history of an insidious onset of right-sided motor and sensory symptoms with slow progression would be more consistent with a tumor rather than infarct in terms of clinical presentation / temporal profile. Moreover, the imaging characteristics themselves also would be consistent with a mass in terms of the thickening of the cortex and edema in that area. I was open and honest with the patient and her daughter regarding my opinion that this looks more like a tumor rather than an infarct. Indeed, the clinical history would support a tumor rather than infarct as well. She does not tolerate any kind of antithrombotics because of previous ocular problems, per patient. She recently had a carotid ultrasound which was negative and follows with Dr. Menendez as an outpatient. I think at this point, it would be reasonable to proceed with a tissue sample to make a definitive diagnosis. I spoke to Dr. Jed Izaguirre briefly regarding my thoughts and findings. I will leave it to the hospitalist team to coordinate with Neurosurgery regarding possible biopsy. She did let me know she is on gabapentin 400 mg q.i.d. for anxiety and pain. Certainly, this could be increased to 600 mg q.i.d. in the interim as she will have increased anxiety as she goes through the diagnostic process. We discussed potential risks, benefits , and alternatives if the dose is increased of gabapentin. She has normal renal function at this point. No further recommendations now. We will continue to follow up as needed. Please do not hesitate to call if there are any questions or changes in neurologic status with this very pleasant patient. Forty-five total minutes floor time today reviewing outside outpatient records, inpatient records, MRI imaging, direct counseling with the patient, and coordination of care. /[id number]/MODL MTDD
[2018-10-03] MEDS: GABAPENTIN 300 MG CAP PO SCH (22:11)
[2018-10-03] MEDS: MIRTAZAPINE 15 MG TAB PO SCH (22:11)
[2018-10-04] MEDS: ALBUTEROL 2 MG TAB PO SCH ×3 (02:55→14:58)
[2018-10-04] MEDS: HYDROCODONE/APAP 5/325 TAB PO PRN ×3 (04:45→21:06)
--- NOTE | 2018-10-04 08:21 | NEUSURGPN ---
Assessment/Plan: Assessment: 87 yr old F with 4 month history of right sided "warmth", mass seen on brain MRI. Neuro intact Plan: -MRI brain shows mass vs infart in left insular cortex -Dr Izaguirre presented patient at [facility] Tumor Board this am. Consensus was that biopsy of mass is not safe and will Consult Oncology this am to see patient and get workup for possible lymphoma? Consider spinal tap for cytology? Ok for patient to discharge from neurosurgery standpoint once seen by Oncology. Patient would like to go home. -Will have patient follow up in our office with Dr Infante with follow up imaging in a few months. -Oncology consulted -Please call neurosurgery with questions/concerns Subjective: sitting at edge of bed eating breakfast, wants to go home Objective: AxO x4 PERRLA, EOMI CN2-12 grossly intact MAEX4 5/5 BUE, BLE Neuro Check Frequency: per routine Urinary Catheter in Place: No - Physician Discussed Patient with : Dmitriy Neurosurgery Physical Exam - Vitals, I&O, Labs I and O 10/03/18 10/04/18 10/05/18 05:59 05:59 05:59 Intake Total 428 300 Balance 428 300 Weight 53.1 kg Intake: Oral (ml) 300 IV Infused (ml) 428 Ns 1,000 ml @ 75 mls/hr 428 IV CONT JOSE Rx#: [id number] Other: Intake Quantity Yes Yes Sufficient Number of Voids Toilet 1 Vital Signs Temp Pulse Resp BP Pulse Ox 36.9 C 74 18 159/72 H 94 10/04/18 07:33 10/04/18 07:33 10/04/18 07:33 10/04/18 07:33 10/04/18 07:33 ICD10 Worksheet Patient Problems: Problems Problem Status Onset Brain mass Acute - ICD10 Problem Qualifiers (1) Brain mass
[2018-10-04] MEDS: LOSARTAN POTASSIUM 50 MG TAB PO SCH (08:29)
[2018-10-04] MEDS: ESCITALOPRAM OXALATE 10 MG TAB PO SCH (08:29)
[2018-10-04] MEDS: GABAPENTIN 300 MG CAP PO SCH ×3 (08:30→20:58)
[2018-10-04] MEDS: PRAVASTATIN SODIUM 20 MG TAB PO SCH (08:31)
[2018-10-04] MEDS: NIFEdipine ER 30 MG TAB PO SCH (08:31)
[2018-10-04] MEDS ORDERED: LOSARTAN POTASSIUM 50 MG TAB PO SCH (09:00)
--- NOTE | 2018-10-04 09:35 | NEUROPROG ---
Assessment: 1. Abnormal brain MRI 35 total minutes floor time; including review of interim consultations, notes and direct counseling the patient Apparently, the tumor board consensus was that would not be safe to do a needle biopsy of the lesion. Oncology has been consulted. There was mention of a lumbar puncture for cytology. Certainly this is a reasonable 1st step, however, if it is negative for abnormal cells-then a tissue sample would be needed for definitive diagnosis (for a primary brain tumor/glioma). If this is the scenario, I would recommend Oncology to consider referral to [facility] department Neurosurgery for biopsy. No further recommendations now. We will continue to follow as needed. Please do not hesitate to call if there are questions or changes in neurologic status with this patient. Subjective: No new symptom Objective: Vital Signs Temp Pulse Resp BP Pulse Ox 36.9 C 74 18 159/72 H 94 10/04/18 07:33 10/04/18 07:33 10/04/18 07:33 10/04/18 08:31 10/04/18 07:33 10/03/18 10/04/18 10/05/18 05:59 05:59 05:59 Intake Total 428 300 Balance 428 300 Awake and alert No aphasia Allergies/Adverse Reactions: bupropion HCl [From Wellbutrin] Allergy (Unknown, Unverified 10/03/18 11:06) amlodipine besylate [From Norvasc] Allergy (Verified 03/27/18 10:08) aspirin Allergy (Verified 10/03/18 03:41) celecoxib [From Celebrex] Allergy (Verified 03/27/18 10:08) NSAIDS (Non-Steroidal Anti-Inflamma Allergy (Verified 10/03/18 03:42) Sulfa (Sulfonamide Antibiotics) Allergy (Verified 03/27/18 10:08)
--- NOTE | 2018-10-04 16:05 | ASMTCMCOM ---
CM Note CM Note Notes: Biopsy of mass determined to be unsafe, onc to consult. No therapies ordered. Pt likely d/c independent. Date Signed: 10/04/2018 04:04 PM Electronically Signed By:LUANNE Escamilla
[2018-10-04] MEDS ORDERED: ALBUTEROL 60 PUFFS/8 GM MDI IH PRN (18:13)
--- NOTE | 2018-10-04 19:39 | HOSPPROG ---
Hospitalist Progress Note Assessment/Plan: Janina Senior is a 87 y/o who presented to the ER with right sided weakness in both upper and lower extremities that resolved. Today is my first encounter, chart reviewed. Appreciate neurosurgery seeing. D/W Dr Tejeda. *right sided weakness w resolution -MRI without contrast shows diffuse thickening in the left insular cortex with focal masslike diffusion restriction posteriorly. 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 Subjective: Feeling fine. No pain. No specific issues. Objective: Vital Signs Temp Pulse Resp BP Pulse Ox 36.7 C 83 14 118/110 H 92 10/04/18 16:00 10/04/18 16:00 10/04/18 16:00 10/04/18 16:00 10/04/18 16:00 10/03/18 10/04/18 10/05/18 05:59 05:59 05:59 Intake Total 428 300 Balance 428 300 - Physical Exam Constitutional: no apparent distress, appears nourished, not in pain Eyes: PERRL, anicteric sclera, EOMI Ears, Nose, Mouth, Throat: moist mucous membranes, hearing normal, ears appear normal Cardiovascular: No JVD, No edema Respiratory: no respiratory distress, no rales or rhonchi, reduced air movement Gastrointestinal: normoactive bowel sounds, No tenderness, No ascites Skin: warm, normal color, No mottled Musculoskeletal: generalized weakness, No no joint effusions, No pain with ROM Neurologic: AAOx3 Psychiatric: interacting appropriately, not encephalopathic, thought process linear, anxious ICD10 Worksheet Patient Problems: Problems Problem Status Onset Brain mass Acute
[2018-10-04] MEDS: MIRTAZAPINE 15 MG TAB PO SCH (20:57)
[2018-10-04] MEDS: ZOLPIDEM TARTRATE 5 MG TAB PO PRN (20:58)
--- NOTE | 2018-10-05 05:30 | GCON ---
HEMATOLOGY-ONCOLOGY CONSULTATION REASON FOR CONSULTATION: Probable brain tumor. HISTORY OF PRESENT ILLNESS: The patient is a very pleasant 87-year-old female with a history of hypertension, osteoarthritis, anxiety, who presented to the emergency room 2-3 days ago with symptoms of increased intermittent right arm and leg pain, and warmth. She has had these intermittent episodes for a few months. She feels they have been increasing more in frequency. She denies any focal weakness, and has not fallen. She denies any headache or focal neurologic symptoms. Her daughter reports that she has noted some difficulty with word finding over the last few months, as well. Brain MRI showed evidence of an abnormality in the left insular cortex. There was an area of surrounding vasogenic edema, and it was unclear whether or not this represented a subacute infarct, versus a low grade glioma. The patient was seen in consultation by both Neurology and Neurosurgery. Neurology felt that these findings were more consistent with a lower grade tumor. The patient's case was presented this morning at Neuro-Oncology Conference. Biopsy of the area was felt to be at high risk. CONTINUOUS TOWEL ROLLER lymphoma was a consideration. Other than the above-mentioned symptoms, the patient has been in her usual state of health. She has not lost any weight. Her energy level has been stable. PAST MEDICAL HISTORY: Osteoarthritis, anxiety, hypertension. PAST SURGICAL HISTORY: Left knee arthroscopy, L4, L5 laminectomy, bilateral cataract surgery, right retinal vein thrombosis, and appendectomy. FAMILY HISTORY: Brother had a benign brain tumor. Otherwise noncontributory. REVIEW OF SYSTEMS: 10-point review of systems negative other than noted. PHYSICAL EXAM: GENERAL: She is a very interactive, alert, younger appearing than stated age female, sitting in bed. VITAL SIGNS: Blood pressure is 118/110 , heart rate 83, O2 sat 92% on room air. She is afebrile. HEENT: Pupils equal. Sclerae anicteric. Oropharynx clear. LYMPH: no cervical supraclavicular or axillary adenopathy. LUNGS: Clear to auscultation. HEART: Regular rate. ABDOMEN: Soft, nontender. EXTREMITIES: No edema. NEURO: Grossly nonfocal. LABORATORY DATA: CBC and metabolic panel are unremarkable. Brain MRI: See HPI. IMPRESSION: This is an 87-year-old female with a several month history of gradual right-sided symptoms of warmth and sensory changes, found to have diffuse thickening in the left insular cortex, with suggestion of a mass like process. Her case was reviewed this morning at neuro conference. The possibility of an area of infarct remains. However, this was felt to be less likely. I spoke with Dr. Izaguirre this evening, who felt that a biopsy of this region is considered relatively high-risk, and could lead to significant neurologic deficits. We discussed the unlikely possibility of this representing some type of a metastasis from a systemic process. While unlikely , lymphoma is a consideration, either as CONTINUOUS TOWEL ROLLER primary or possibly CONTINUOUS TOWEL ROLLER involvement from a systemic lymphoma. She has no symptoms to suggest that. CT scan of chest, abdomen, and pelvis could be helpful to exclude that as a possibility. We discussed the possibility of a primary CONTINUOUS TOWEL ROLLER lymphoma. Given that biopsy is considered high risk, there was discussion at conference this morning of a spinal tap to evaluate CSF for cytology and flow cytometry. I think this is likely very low yield. However, in discussing this with the patient, she is interested in doing whatever we can do, short of a biopsy, to identify a diagnosis. 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 The recommendations from neuro conference was to do a short-term followup MRI in 1 month. In the event that this does represent a lower grade process, we would not expect to see any significant change. In the event this is a high grade glioma, we would likely see additional changes. This would be an extremely difficult situation in that the tumor would not be resectable. At the end of our visit, all of the patient's and daughter's questions were answered. PLAN: 1. CT scan of the chest, abdomen, pelvis. 2. Lumbar puncture with fluid sent for cytology and flow cytometry. 3. Once we have done the spinal tap, we discussed consideration of low dose dexamethasone at 2 mg twice b.i.d. to help reduce some of the vasogenic edema, which may help to reduce some of her current symptoms. 4. Anticipate close followup with me, as well as with Dr. Izaguirre, and then anticipate followup MRI in 1 month which will be reviewed at neuro conference. /[id number]/MODL MTDD
[2018-10-05] MEDS: GABAPENTIN 300 MG CAP PO SCH ×2 (06:08→11:49)
--- NOTE | 2018-10-05 08:07 | SOAPPROG ---
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 discussed with patient the consensus from tumor board to not do brain biopsy Appreciate Oncology input, getting CT CAP and LP today will do short term follow up with MRI brain in 1 months ok to dc after completion of Oncology work up today Patient can call [phone] to schedule follow up with Dr Pablo in 3-4 weeks after discharge from hospital please call with neuro changes 10/05/18 08:04 Subjective: no headaches, no N/V. No weakness. Objective: Vital Signs Temp Pulse Resp BP Pulse Ox 37.0 C 89 17 148/69 H 95 10/05/18 00:00 10/05/18 00:00 10/05/18 00:00 10/05/18 00:00 10/05/18 00:00 10/04/18 10/05/18 10/06/18 05:59 05:59 05:59 Intake Total 428 950 Balance 428 950 AAOx4, +FC PERRL, EOMI, no facial droop NAIMA x 4 + light touch ICD10 Worksheet Patient Problems: Problems Problem Status Onset Brain mass Acute
[2018-10-05] MEDS: NIFEdipine ER 30 MG TAB PO SCH (08:14)
[2018-10-05] MEDS: PRAVASTATIN SODIUM 20 MG TAB PO SCH (08:14)
[2018-10-05] MEDS: LOSARTAN POTASSIUM 50 MG TAB PO SCH (08:15)
[2018-10-05 08:22] LABS: INR 0.97 (0.83-1.16); PROTIME(PATIENT) 13.1 SEC (12.0-15.0)
[2018-10-05] MEDS: HYDROCODONE/APAP 5/325 TAB PO PRN ×2 (08:24→13:10)
[2018-10-05] MEDS: ALPRAZolam 0.25 MG TAB PO PRN (08:25)
[2018-10-05] MEDS ORDERED: ESCITALOPRAM OXALATE 10 MG TAB PO SCH (09:00)
[2018-10-05] MEDS ORDERED: IOPAMIDOL (ISOVUE-300) 100 ML BTL ONE (10:12)
[2018-10-05] MEDS ORDERED: LIDOCAINE 1% 300 MG/30 ML SDV ONE (11:33)
[2018-10-05 13:08] VITALS: BP 140/78
--- NOTE | 2018-10-05 14:10 | ASMTLACE ---
HAROLDOE Length of stay for Answers: 3 days current admission Acuity / Level of Answers: Yes Care: Did the patient have an inpatient admission? Comorbidities - select Answers: Opioid dependence all that apply / Chronic pain Other Notes: HTN; HLD # of Emergency department Answers: 1-2 visits in the last 6 months Social determinants Answers: Mental health diagnosis (anxiety, depression, pers onality disorders, etc.) Score: 15 Date Signed: 10/05/2018 02:09 PM Electronically Signed By:LUANNE Escamilla
--- NOTE | 2018-10-05 14:14 | ASMTCMCOM ---
CM Note CM Note Notes: Pt had chest CT, lumbar puncture per onc rec. Pt to follow up with neurosurgery, onc and to have MRI in one month. Pt medically stable for d/c, no CM d/c needs identified. Date Signed: 10/05/2018 02:14 PM Electronically Signed By:LUANNE Escamilla
--- NOTE | 2018-10-05 19:46 | GDS ---
DISCHARGE DIAGNOSES: 1. 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 2. Right-sided weakness. 3. Hypertension. 4. Hyperlipidemia. 5. Osteoarthritis. 6. Anxiety. CONSULTATIONS: 1. Neurosurgery. 2. Oncology. STUDIES AND PROCEDURES DONE: 1. MRI of the brain x2. 2. CT of the abdomen. 3. CT of the chest. 4. Lumbar puncture. PHYSICAL EXAM: GENERAL: The patient is alert. VITAL SIGNS: Afebrile at 36.6, pulse 63, respirator y rate 14. Blood pressure is 140/78. She is saturating 91% on room air. I have seen and evaluated the patient on the day of discharge. HOSPITAL COURSE: The patient is an 87-year-old female who presented to the emergency room with compl aints of right-sided weakness. She was evaluated and diagnosed with: 1. 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 During this hospitalization, she had multiple MRIs of her brain. The etiolo gy of the abnormality is unclear at this time. The patient was unable to get a biopsy secondary to t he location of this tumor. She did receive a consultation from Neurosurgery as well as Oncology. CT scans of her abdomen and pelvis as well as chest were performed as well as a lumbar puncture for pot ential further diagnostic information. The patient will be discharged and follow up in the outpatien t setting for further recommendations. 2. Hypertension. Her losartan has been continued and hypertension is stable. 3. Hyperlipidemia. No adjustments needed. 4. Anxiety. The patient has been treated during this hospitalization with supportive care. 5. Disposition. She will be discharged home independently. FOLLOWUP: With Dr. Juli Jimenez as well as Dr. Kike Knight and Dr. Freda Pablo. The patient's [facility] physician is Dr. Browning and will help the patient manage her underlying diagnoses in the outpatient setting. TIME SPENT: I have spent greater than 35 minutes in the care, coordination, and management of this p atient's disposition. DISCHARGE MEDICATIONS: I provided the patient a prescription for Decadron 2 mg p.o. b.i.d. to assist in her residual symptoms. /[id number]/MODL
== END 2018-10-05 14:13 | disposition home or self-care (01) | DRG 55 ==
LOC: F3N 10-03 01:03 → OBSVTOIN 10-03 14:48
PROVIDERS: ADMIT Family Medicine; ATTEND Family Medicine
PROC: 009U3ZX Drainage of Spinal Canal, Percutaneous Approach, Diagnostic (ICD-10-PCS; principal; 2018-10-05)
DX: D49.6 Neoplasm of unspecified behavior of brain (principal); I10 Essential (primary) hypertension; E78.5 Hyperlipidemia, unspecified; M19.90 Unspecified osteoarthritis, unspecified site; F41.9 Anxiety disorder, unspecified
CPT/HCPCS: 84484-PO; 85060-90; 88184-90; 88185-91; A9585; Q9967

== ENCOUNTER → 2018-11-08 | Outpatient (CLI) | payer OTHER, MEDICARE ==
[~2018-11-08] MED LIST changes: +GADOBUTROL 10 ML VIAL IVP ONE; -IOPAMIDOL (ISOVUE 370) 100 ML BTL IV ONE
== END ==
LOC: FIMAGING 09:53
PROVIDERS: ATTEND Physician Assistant Surgical
DX: G93.9 Disorder of brain, unspecified (principal); G31.9 Degenerative disease of nervous system, unspecified; J32.0 Chronic maxillary sinusitis; I67.82 Cerebral ischemia
CPT/HCPCS: 70553; A9585

== ENCOUNTER 2018-11-13 16:34 | Emergency (ER) | payer OTHER, MEDICARE ==
--- NOTE | 2018-11-13 17:42 | EDPHY ---
H & P Stated Complaint: left leg and left elbow swollen since this am Time Seen by Provider: 11/13/18 16:46 HPI/ROS: 88yo F with history of brain mass , presents with complaint of left leg swelling. She fell recently and fractured her left proximal humerus , she also complains that has increased swelling. Review of systems as per hpi General no fever no chills pos weakness HEENT no eye pain no eye discharge. No eye redness, no sore throat Respiratory no cough, no shortness of breath Cardiac no chest pain, pos peripheral edema GI no abdominal pain, no diarrhea, no constipation, no nausea, no vomiting no flank pain, no hematuria, no dysuria Musculoskeletal pos myalgias, pos joint pain Heme pos easy bruising, no easy bleeding Endo no polyuria, no polydipsia Skin no rashes, no pruritus Neuro no syncope, no dizziness, no headaches Psych is no suicidal ideation, no homicidal ideation Source: Patient, Family Exam Limitations: Clinical condition - Personal History Current Tetanus Diphtheria and Acellular Pertussis (TDAP): Yes Tetanus Vaccine Date: < 10 YEARS - Medical/Surgical History Hx Asthma: Yes Hx Chronic Respiratory Disease: Yes Hx Diabetes: No Hx Cardiac Disease: No Hx Renal Disease: No Hx Cirrhosis: No Hx Alcoholism: No Hx HIV/AIDS: No Hx Splenectomy or Spleen Trauma: No Other PMH: arthritis, HTN. appendectomy, hernia repair, tonsilectomy , laminecotmy lumbar, cataracts, blood clot right eye, respiratory - SOB, CPAP, brain tumor,shoulder injury - Family History Significant Family History: No pertinent family hx - Social History Smoking Status: Never smoked Alcohol Use: None Drug Use: None - Physical Exam Exam: 88 yo F alert , oriented , non toxic appearance at,nc neck supple lungs cta bilat heart rrr abd bs present, slightly distended, non tender, no guarding or rebound left upper ext with swelling and ecchymoses good distal pulses, scattered abrasions left lower ext with scattered abrasions and ecchymoses, mild calf ttp able to bear weight on this leg and ambulate left lower leg larger than right lower leg Constitutional: Initial Vital Signs Temperature (C) 37.6 C 11/13/18 16:57 Heart Rate 89 11/13/18 16:57 Respiratory Rate 16 11/13/18 16:57 Blood Pressure 110/62 11/13/18 16:57 O2 Sat (%) 90 L 11/13/18 16:57 O2 Delivery Mode Room Air O2 (L/minute) 2 Allergies/Adverse Reactions: bupropion HCl [From Wellbutrin] Allergy (Unknown, Verified 11/13/18 17:17) amlodipine besylate [From Norvasc] Allergy (Verified 11/13/18 17:17) aspirin Allergy (Verified 11/13/18 17:17) celecoxib [From Celebrex] Allergy (Verified 11/13/18 17:17) NSAIDS (Non-Steroidal Anti-Inflamma Allergy (Verified 11/13/18 17:17) Sulfa (Sulfonamide Antibiotics) Allergy (Verified 11/13/18 17:17) Home Medications: Medication Instructions Recorded Losartan Potassium 100 mg PO DAILY 08/02/13 NIFEdipine ER [Adalat CC 30 mg (*)] 30 mg PO DAILY 08/02/13 Hydrocodone/Acetaminophen [[place] 1 - 2 tab PO Q4-6PRN PRN 06/06/14 5/325 (*)] Pravastatin Sodium 20 mg PO HS 03/27/18 Mirtazapine [Remeron] 15 mg PO HS 10/03/18 traZODone [traZODONE 50MG (*)] 50 mg PO BID@02,21 PRN 10/03/18 Albuterol [Proventil Inhaler HFA 1 - 2 puffs IH Q4H PRN 10/04/18 (*)] Escitalopram Oxalate [Lexapro] 20 mg PO DAILY 10/04/18 Gabapentin [Neurontin] 600 mg PO QID 10/04/18 Acetaminophen [Tylenol 325mg (*)] 650 mg PO Q4HRS PRN tab 10/05/18 Medical Decision Making - Diagnostics Imaging Results: Imaging Impressions Extremity Venous Study 11/13/18 17:42 Impression: No evidence of vein thrombosis in the left arm. 2. Ultrasound and Venous Duplex Doppler Study of Left Lower Extremity History: Increased swelling today. Recent history of soleal vein thrombus.. Technique: High frequency transducer was used for imaging and Doppler study of the veins of the lower extremity. Spectral Doppler and color Doppler were utilized, along with various maneuvers to assess flow in the veins. Findings: The deep veins of the lower extremity are normally compressible between the groin and the upper calf and have normal Doppler waveforms within them. No deep venous thrombosis is identified. No soleal vein thrombus, other superficial phlebitis or Hedrick cyst is identified. Impression: No deep vein thrombosis in the left lower extremity. Results called to Dr. Ochoa at 7:25 PM. Extremity Venous Study 11/13/18 17:43 Impression: No evidence of vein thrombosis in the left arm. 2. Ultrasound and Venous Duplex Doppler Study of Left Lower Extremity History: Increased swelling today. Recent history of soleal vein thrombus.. Technique: High frequency transducer was used for imaging and Doppler study of the veins of the lower extremity. Spectral Doppler and color Doppler were utilized, along with various maneuvers to assess flow in the veins. Findings: The deep veins of the lower extremity are normally compressible between the groin and the upper calf and have normal Doppler waveforms within them. No deep venous thrombosis is identified. No soleal vein thrombus, other superficial phlebitis or Hedrick cyst is identified. Impression: No deep vein thrombosis in the left lower extremity. Results called to Dr. Ochoa at 7:25 PM. Clavicle X-Ray 11/13/18 17:47 Impression: Prominent elbow region soft tissue swelling. Consider obtaining dedicated elbow x-rays to better evaluate that joint for bony integrity and alignment. 2. Left Clavicle, 2 views History: Increased swelling, known recent fracture Findings: The humeral head remains normally aligned in the glenoid, despite the resembling known comminuted neck fracture. The clavicle and AC joints appear normal. No upper left rib fracture is identified. Impression: Intact clavicle. Humerus X-Ray 11/13/18 17:48 Impression: Prominent elbow region soft tissue swelling. Consider obtaining dedicated elbow x-rays to better evaluate that joint for bony integrity and alignment. 2. Left Clavicle, 2 views History: Increased swelling, known recent fracture Findings: The humeral head remains normally aligned in the glenoid, despite the resembling known comminuted neck fracture. The clavicle and AC joints appear normal. No upper left rib fracture is identified. Impression: Intact clavicle. ED Course/Re-evaluation: pt seen and evaluated for left leg edema and left arm pain and swelling. xrays c/w right proximal humerus comminuted fracture no clavicle fracture us of left upper ext neg dvt us of left lower ext neg dvt wound care provided CBC wbc wnl, platlets wnl lactate 1.4 BMP wnl Imp multiple contusions and edema to left lower leg and foot, but no signs of cellulitis left proximal humerus comminuted fracture- sling and swath Plan dc home keep follow up with ortho as planned follow up with pcp elevate leg to decrease swelling Differential Diagnosis: Differential diagnosis considered but not limited to: Deep vein thrombosis left lower extremity, deep vein thrombosis left upper extremity, arm fracture, leg fracture Cellulitis, lymphedema - Data Points Laboratory Results: Laboratory Results 11/13/18 18:30 11/13/18 11/13/18 11/13/18 18:41 18:38 18:30 WBC 9.58 10^3/uL H 10^3/uL (3.80-9.50) RBC 3.86 10^6/uL L 10^6/uL (4.18-5.33) Hgb 11.9 g/dL L g/dL (12.6-16.3) Hct 37.5 % L % (38.0-47.0) MCV 97.2 fL fL (81.5-99.8) MCH 30.8 pg pg (27.9-34.1) MCHC 31.7 g/dL L g/dL (32.4-36.7) RDW 16.2 % H % (11.5-15.2) Plt Count 207 10^3/uL 10^3/uL (150-400) MPV 12.1 fL H fL (8.7-11.7) Neut % (Auto) 65.4 % % (39.3-74.2) Lymph % (Auto) 22.3 % % (15.0-45.0) [place]arr % (Auto) 9.7 % % (4.5-13.0) Eos % (Auto) 1.6 % % (0.6-7.6) Baso % (Auto) 0.5 % % (0.3-1.7) Nucleat RBC Rel Count 0.0 % % (0.0-0.2) Absolute Neuts (auto) 6.26 10^3/uL 10^3/uL (1.70-6.50) Absolute Lymphs (auto) 2.14 10^3/uL 10^3/uL (1.00-3.00) Absolute Monos (auto) 0.93 10^3/uL H 10^3/uL (0.30-0.80) Absolute Eos (auto) 0.15 10^3/uL 10^3/uL (0.03-0.40) Absolute Basos (auto) 0.05 10^3/uL 10^3/uL (0.02-0.10) Absolute Nucleated RBC 0.00 10^3/uL 10^3/uL (0-0.01) Immature Gran % 0.5 % % (0.0-1.1) Immature Gran # 0.05 10^3/uL 10^3/uL (0.00-0.10) POC Sodium 140 mEq/L mEq/L (135-145) POC Potassium 3.5 mEq/L mEq/L (3.3-5.0) POC Chloride 103.0 mEq/L mEq/L (97-110) POC Total CO2 24 mEq/L mEq/L (22-31) POC BUN 18 mg/dL mg/dL (7-23) POC Creatinine 1.2 mg/dL H mg/dL (0.6-1.0) POC Glucose 117 mg/dL H mg/dL (70-100) POC Lactic Acid [place] 1.4 mmol/L mmol/L (0.7-2.1) POC Calcium 9.4 mg/dL mg/dL (8.5-10.4) Medications Given: Discontinued Medications Morphine Sulfate (Morphine) 4 mg IVP EDNOW ONE Stop: 11/13/18 19:41 Last Admin: 11/13/18 19:42 Dose: 4 mg Point of Care Test Results: Chemistry 11/13/18 18:38 POC Sodium 140 mEq/L mEq/L (135-145) POC Potassium 3.5 mEq/L mEq/L (3.3-5.0) POC Chloride 103.0 mEq/L mEq/L (97-110) POC Total CO2 24 mEq/L mEq/L (22-31) POC BUN 18 mg/dL mg/dL (7-23) POC Creatinine 1.2 mg/dL H mg/dL (0.6-1.0) POC Glucose 117 mg/dL H mg/dL (70-100) POC Calcium 9.4 mg/dL mg/dL (8.5-10.4) Blood Gas/Lactic Acid-Venous 11/13/18 18:41 POC Lactic Acid [place] 1.4 mmol/L mmol/L (0.7-2.1) Urine Dip Collection Date 11/13/18 Collection Time 21:00 Specific [place] (1.002-1.030) 1.025 PH (5.0-7.5) 5.5 Leukocytes (Negative) Negative Nitrites (Negative) Negative Protein (Negative) Trace Glucose (Negative) Negative Ketones (Negative) Negative Urobilnogen (0.2-1.0 EU) 0.2 Bilirubin (Negative) Negative Blood (Negative) Negative Departure - Departure Disposition: Home, Routine, Self-Care Clinical Impression: Edema of left lower extremity, Traumatic ecchymosis of multiple sites of left lower extremity, Comminuted left humeral fracture Condition: Good Instructions: Contusion in Adults (ED), Leg Edema (ED), Proximal Humerus Fracture (ED) Referrals: Alejandra Browning MD [Primary Care Provider] - As per Instructions
[2018-11-13 21:06] LABS: PLATELET COUNT 207 10^3/uL (150-400)
[2018-11-13 21:48] VITALS: BP 149/75
== END 2018-11-13 21:47 | disposition home or self-care (01) ==
LOC: CED 16:34
DX: S80.12XA Contusion of left lower leg, initial encounter (principal); R60.0 Localized edema; S42.292D Other displaced fracture of upper end of left humerus, subsequent encounter for fracture with routine healing; W19.XXXD Unspecified fall, subsequent encounter; Y92.9 Unspecified place or not applicable; Y99.9 Unspecified external cause status
CPT/HCPCS: 73000; 73060; 93971; 96374; 99285; J2270; 80048-PO; 83605-PO

== ENCOUNTER → 2019-05-05 | Outpatient (CLI) | payer OTHER, MEDICARE | LOC: BMCIMAGING 15:04 ==